=== PATIENT | male | born 1965 | race Hispanic/Latino ===

== ENCOUNTER 2016-07-09 16:30 | Emergency (ER) | payer OTHER ==
[~2016-07-09] VITALS: Ht 167.6 cm; Wt 91.6 kg
[2016-07-09 16:40] VITALS: BP 143/87
== END 2016-07-09 17:09 | disposition admitted as inpatient to this hospital (09) ==
LOC: EDBD 16:30 → ERH 16:30
DX: M25.511 Pain in right shoulder (principal); W00.0XXA Fall on same level due to ice and snow, initial encounter